=== PATIENT | female | born 1955 | race Hispanic/Latino ===

== ENCOUNTER 2023-03-27 16:41 | Emergency (ER) | payer MEDICARE ==
[2023-03-27 18:10] LABS: #Eosinphils 0.1 10x3/uL (0.0-0.5); #Monocytes 0.4 10x3/uL (0.0-1.1); #Neutrophils 2.5 10x3/uL (1.5-8.4); %Basophils 0.5 % (0.0-2.0); %Lymphocytes 21.6 % (18.0-47.0); %Monocytes 10.8 % (0.0-10.0); %Neutrophils 63.8 % (40.0-75.0); Hematocrit 31.7 % (34.9-44.5); Mean Corpuscular HGB CONC 31.5 g/dL (32.0-36.0); Mean Corpuscular Hemoglobin 31.1 pg (27.0-33.0); Mean Corpuscular Volume 98.4 fl (81.6-98.3); Platelet Count 133 10x3/uL (150-450); RBC Distribution Width 15.9 % (11.5-14.5); Red Blood Cell (RBC) Count 3.22 10x6/uL (3.90-5.03)
== END 2023-03-27 19:20 | disposition home or self-care (01) ==
LOC: CSHERS 16:41
DX: N36.2 Urethral caruncle (principal); I12.0 Hypertensive chronic kidney disease with stage 5 chronic kidney disease or end stage renal disease; E11.22 Type 2 diabetes mellitus with diabetic chronic kidney disease; N18.6 End stage renal disease; I48.91 Unspecified atrial fibrillation; Z79.01 Long term (current) use of anticoagulants; Z99.2 Dependence on renal dialysis; N93.9 Abnormal uterine and vaginal bleeding, unspecified; I25.2 Old myocardial infarction
CPT/HCPCS: 36415; 85025; 99284